=== PATIENT | male | born 1935 | race Caucasian/White ===

== ENCOUNTER → 2016-07-08 | Day surgery (SDC) | payer MEDICARE ==
[~2016-07-08] MED LIST: ALPR0.25 FT; CEFAZOLIN 1GM IVPB FOR OMNI 50 ML IV ONE; CEFAZOLIN 1GM IVPB FOR OMNI 50 ML IV PRN; CHOL10002 FT; FENTANYL PF 100 MCG/2 ML VIAL. IV PRN; HYDROMORPHONE 2 MG/ML VIAL. IV PRN; IV RINGERS,LACTATED 1000ML 1,000 ML IV SCH; LIDOCAINE 1% 1 ML SYRINGE. ID PRN; LIDOCAINE 2% PF Vial for OR 5 ML VIAL. ONE; MORPHINE SULFATE 2 MG/ML DISP.SYRIN. IV PRN; ONDANSETRON PF 4 MG/2 ML VIAL. IV PRN; PRED15SO3 FT; PROCHLORPERAZINE 10 MG/2 ML VIAL. IV PRN; PROPOFOL 20 ML IV ONE; QUET25TA5 FT
[2016-07-08 08:55] VITALS: BP 136/74
--- NOTE | 2016-07-09 03:32 | CONS ---
DATE OF CONSULTATION: 07/08/2016 GASTROINTESTINAL CONSULTATION REASON FOR CONSULTATION: Oropharyngeal dysphagia. REFERRING PHYSICIAN: Dr. Benitez. HISTORY OF PRESENT ILLNESS: A 80-year-old male with past medical history significant for hypertension, mild dementia, oropharyngeal dysphagia, seen for PEG replacement, who has been unable to eat or drink for the past 6 months, has feeding tube in place, now requested for replacement with an original tube. There is no hematemesis or melena. There has been no change in weight. He has no additional complaints. He is rather an elusive historian. PAST MEDICAL HISTORY: Status post CVA and hypertension. ALLERGIES: PHENYTOIN. MEDICATIONS: Includes Xanax, prednisolone, and Seroquel. SOCIAL HISTORY: He is retired, does not drink or smoke. FAMILY HISTORY: Noncontributory. REVIEW OF SYSTEMS: Not obtainable. PHYSICAL EXAMINATION: GENERAL: Reveals a well-nourished, well-developed white male who is alert and is cooperative. VITAL SIGNS: Pulse 75, respiratory rate 18. HEENT: Normocephalic and atraumatic head. Pupils and extraocular muscles not tested. Sclerae anicteric. NECK: Supple. LUNGS: Clear anteriorly. CARDIOVASCULAR: Reveals an S1, S2 without S3, S4 or appreciable murmur. ABDOMEN: Reveals a soft abdomen, normal bowel sounds, without appreciable hepatosplenomegaly with an intact left upper quadrant PEG tube. EXTREMITIES: Reveals no cyanosis, clubbing, or edema, with left hemiparesis. IMPRESSION: Oropharyngeal dysphagia. We will recommend PEG replacement. Risks and benefits of procedure including risk of perforation have been discussed with the patient who is willing to proceed at this time. I would like to thank Dr. Benitez for allowing us to consult and participate in this patient's care. LAURI MONTALVO MD DR: ESDRAS/[place] JOB#: [id number] / [id number]
== END | disposition home or self-care (01) ==
LOC: ENDOS 07:21
PROVIDERS: ATTEND Internal Medicine Gastroenterology
DX: K94.23 Gastrostomy malfunction (principal); K21.9 Gastro-esophageal reflux disease without esophagitis; M19.90 Unspecified osteoarthritis, unspecified site; Z90.49 Acquired absence of other specified parts of digestive tract; Z96.642 Presence of left artificial hip joint
CPT/HCPCS: 43246; J0690; J2704